=== PATIENT | male | born 1940 | race Caucasian/White ===

== ENCOUNTER 2017-06-02 15:45 | Observation (INO) | payer MEDICARE, OTHER ==
[~2017-06-02] VITALS: Ht 180.3 cm; Wt 75.9 kg
--- NOTE | ~2017-06-02 | HP ---
History And Physical [address] [place]. [address] NAME: YOAV SELLERS JR : 42 STATUS : ADM Krissy PAT#: [id number] AGE: 76 ADM/REG DATE : 06/02/17 MR#: [id number] REPORT SERV DATE: 06/03/17 DICTATED BY: ELEANOR SARABIA V. DATE: 06/02/17 REPORT STATUS : Draft TRANSCRIBED BY: MODChoco DATE: 06/02/17 DATE OF ADMISSION: 06/02/2017 CHIEF COMPLAINT: Mild left flank pain. HISTORY OF PRESENT ILLNESS: Mr. Sellers is a pleasant 76-year-old gentleman, status post donor renal transplant at the [facility] in 1999, who has a history of posttransplant lymphoproliferative disorder that has been followed in the past by Dr. Renteria. Primary treatment for that in addition to the chemotherapy was cessation of his CellCept therapy. He was found to have some left flank discomfort for the past few months on and off. 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 He was called and told to come to the emergency department today. He denies any fevers or chills. States the left flank pain is mild and usually only bothers him when he coughs or takes a really deep breath. He does have a history of retinal vein occlusion and has had phlebotomy for erythrocytosis in the past. No recent episodes of need for phlebotomy, however. PAST MEDICAL HISTORY: 1. Renal transplant with excellent allograft function. 2. Hypertension. 3. Diabetes mellitus. 4. History of retinal vein occlusion. 5. History of erythrocytosis. 6. Hyperlipidemia. 7. History of PCP pneumonia. SOCIAL HISTORY: He is retired. He and his live approximately 4 to 5 months out of the year in the [facility]. No alcohol or tobacco at present. FAMILY HISTORY: Noncontributory. ALLERGIES: INCLUDE IODINATED CONTRAST, SHELLFISH, AND IODINE. MEDICATIONS: Home medications include 1. Tylenol. 2. Artificial Tears. 3. Baby aspirin. 4. Coenzyme Q10. 5. Vitamin B12. 6. Colace. 7. Sliding-scale insulin. 8. Lisinopril. 9. Toujeo insulin. 10.Magnesium oxide. 11.Metformin. 12.Potassium. [facility] [address] [address] NAME: YOAV SELLERS JR : 42 STATUS : ADM rKissy PAT#: [id number] AGE: 76 ADM/REG DATE : 06/02/17 MR#: [id number] REPORT SERV DATE: 06/03/17 DICTATED BY: ELEANOR SARABIA V. DATE: 06/02/17 REPORT STATUS : Draft TRANSCRIBED BY: MODChoco DATE: 06/02/17 13.Phosphorus two tablets daily. 14.Prednisone 10 mg. 15.Crestor 5 mg daily. 16.Senokot daily. 17.Prograf 3 mg in the morning, 2 mg in the evening. 18.Bactrim one tablet p.o. Wednesday, Wednesday, and Wednesday. REVIEW OF SYSTEMS: All review of systems are negative except as described above. PHYSICAL EXAMINATION: VITAL SIGNS: Temperature 96.9, heart rate 89, and blood pressure 135/63. GENERAL: He was a very pleasant elderly gentleman with no increased work of breathing. HEENT: Pupils equal, round, and reactive to light. Sclerae were anicteric. Oropharynx was clear with no lesions. NECK: Trachea midline. No thyromegaly. No supraclavicular nodes. No axillary lymph nodes. CHEST: Clear to auscultation with equal bilateral breath sounds. Regular rate and rhythm. No rub. ABDOMEN: Soft and nondistended. Bowel sounds were physiologic. No focal tenderness was appreciated even with deep palpation of the left upper quadrant. EXTREMITIES: Trace lower extremity edema. No clubbing. No cyanosis. SKIN: Warm and dry. No rash or lesions. Some easy bruisability and scattered bruises were noted. LABORATORY DATA: BUN and creatinine 17 and 0.9, hematocrit 40, and white count 10.8. Coagulation studies were normal. CT scan reviewed showed a band-like infarct in the spleen. 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 The patient is relatively asymptomatic, and it may very well be that the splenic infarct has been present for some time. He does have a history of erythrocytosis that led perhaps to retinal vein occlusion. However, he does not currently have significant erythrocytosis. Does not require emergent or urgent anticoagulation at this time. PLAN: 1. We will ask Hematology and Vascular Surgery to visit. He has seen Dr. Renteria in the past for his PTLD. 2. We will defer to the vascular surgery expertise regarding need for further imaging. His allergy to iodinated contrast will make visualization perhaps somewhat difficult. 3. We will defer to Hematology Oncology regarding the need for hypercoagulable workup. 4. Resume his home medications. All the above was discussed with the patient and the patient's at the patient's bedside; they were agreeable to the plan of care. History And Physical [address] [place]. [address] NAME: YOAV SELLERS JR : 42 STATUS : ADM Krissy PAT#: [id number] AGE: 76 ADM/REG DATE : 06/02/17 MR#: [id number] REPORT SERV DATE: 06/03/17 DICTATED BY: ELEANOR SARABIA V. DATE: 06/02/17 REPORT STATUS : Draft TRANSCRIBED BY: ABELARDO DATE: 06/02/17 HELEN/ABELARDO Eleanor Sarabia M.D. / [id number] CC: Yoni Salas M.D.
--- NOTE | ~2017-06-02 | CN ---
Consultation Report [facility] [address] [place]. [address] NAME: YOAV CHANEY JR : 42 STATUS : DIS Krissy PAT#: [id number] AGE: 76 ADM/REG DATE : 06/02/17 MR#: [id number] REPORT SERV DATE: 06/07/17 DICTATED BY: RASHEL MINOR DATE: 06/07/17 REPORT STATUS : Draft TRANSCRIBED BY: MODChoco DATE: 06/07/17 CONSULTATION DATE OF CONSULTATION: 06/02/2017 CHIEF COMPLAINT: Left flank pain. HISTORY OF PRESENT ILLNESS: This is a 76-year-old, male with a history of donor renal transplant at [facility] in 1999, and he also had a history of post transplant lymphoproliferative disorder that has been followed in the past by Dr. Renteria. The patient reports that he has had left flank pain on and off for the last several months and recently underwent a CT scan, which identified a splenic infarct. He was called and told to come to the ER. Dr. Robert Sarabia is the admitting and attending, who is overseeing his care. From a transplant perspective, the patient reports that he is doing well with stable baseline creatinine with no other complaints. He did report that he undergoes phlebotomy for erythrocytosis every three to four months and has had a recent retinal vein occlusion. In discussing with the patient and his , he does state that over the last several months, he has not had to undergo phlebotomy, as frequently as previous years. REVIEW OF SYSTEMS: An 11-point review of systems was interrogated and is otherwise negative. Other than stated in the HPI. PAST MEDICAL HISTORY: Includes renal transplant, hypertension, diabetes, history of retinal vein occlusion, history of erythrocytosis, hyperlipidemia, history of PCP pneumonia. PAST SURGICAL HISTORY: Includes renal transplant. SOCIAL HISTORY: He denies alcohol, tobacco use, or illicit drug use. He is retired and currently lives with his where they live in the [facility] four to five months out of the year. FAMILY HISTORY: Noncontributory. ALLERGIES: IODINATED CONTRAST, SHELLFISH AND IODINE. MEDICATIONS: Tylenol, Artificial Tears, baby aspirin, Coenzyme Q10, vitamin B12, Colace, sliding-scale insulin, lisinopril, insulin magnesium oxide, metformin, potassium, phosphorus, prednisone, Crestor, Senokot, Prograf ,and Bactrim. PHYSICAL EXAMINATION: GENERAL: The patient is awake, alert, and oriented and appears to be comfortable, well- appearing elderly gentleman. HEENT: Pupils are equal, round, reactive to light. Sclera are anicteric. Oropharynx is Consultation Report [facility] [address] [place]. [address] NAME: YOAV CHANEY JR : 42 STATUS : DIS Krissy PAT#: [id number] AGE: 76 ADM/REG DATE : 06/02/17 MR#: [id number] REPORT SERV DATE: 06/07/17 DICTATED BY: RASHEL MINOR DATE: 06/07/17 REPORT STATUS : Draft TRANSCRIBED BY: ABELARDO DATE: 06/07/17 clear. NECK: Trachea is midline. No thyromegaly. No jugular venous distention. CHEST: Clear to auscultation bilaterally. Regular rate and rhythm. With no identifiable cardiac rubs. ABDOMEN: Soft, nontender, nondistended. No focal tenderness. No rebound. No guarding. EXTREMITIES: Bilateral lower extremities are well perfused with normal pulse exam. No cyanosis or clubbing. SKIN: No rashes or erythema and some small areas of bruising along the forearms. LABS: 1. Baseline creatinine is 0.9. Hematocrit is 40. His white blood cell count 10.8. 2. Imaging CT scan shows a 7.2 x 3.4 x 3.5, infarction of the spleen with heavy calcification along the splenic artery as well as some noted calcification at the celiac trunk and SMA. IMPRESSION: This is a pleasant 76-year-old, white male with a history of donor renal transplant and history post-transplant lymphoproliferative disorder with a new finding of splenic infarct. The patient denies significant debilitating pain at this point. It is for the most part asymptomatic. He does have a history of erythrocytosis. Requiring phlebotomy; however, continued workup for this is nonemergent. Because he does have heavy calcifications within the splenic artery itself and at the superior mesenteric artery orifice and celiac trunk, I will further evaluate with a mesenteric abdominal ultrasound. To rule out any significant stenosis. Dr. Sarabia is arranging a Hematology/Oncology consultation for hypercoagulable workup, which I will follow this up. He is currently on a daily aspirin, which I recommend continuing. EC/MODL Rashel Minor DO / [id number] CC: Yoni Salas M.D.
[~2017-06-02 15:45] MED LIST: ASAB PO; B12250T PO; LANTUS FOR SC; LEVEMIR SC; MAGNESIUM PO; MOMUD PO; NIACIN50T PO; NORV25 PO; NOVOLOG SC; NUIRONCAP PO; P10 PO; PROGRAF1 PO; SEPTRA DS1 TAB PO; TUMSROLL PO; VITAMIN D1000 UNI1 PO; [UNRECOGNIZED DRUG - REMARK] PO
[2017-06-02 16:44] LABS: BASOPHILS 0.2 %; BASOPHILS ABSOLUTE 0.02 10/3/uL (0.0-0.16); EOSINOPHILS 0.5 %; EOSINOPHILS ABSOLUTE 0.05 10/3/uL (0.0-0.53); HEMATOCRIT 40.1 % (40.0-51.0); HEMOGLOBIN 12.8 g/dL (13.6-17.8); IMMATURE GRANULOCYTES 0.4 %; IMMATURE GRANULOCYTES ABSOLUTE 0.04 10/3/uL (0.0-0.11); LYMPHOCYTES 11.4 %; LYMPHOCYTES ABSOLUTE 1.23 10/3/uL (0.67-4.30); MEAN CORPUS HGB CONC 31.9 g/dL (32.0-36.0); MEAN CORPUSCULAR HEMOGLOB 26.1 pg (26.0-34.0); MEAN CORPUSCULAR VOLUME 81.7 fL (80-100); MEAN PLATELET VOLUME 9.5 fL (9.2-13.0); MONOCYTES 4.1 %; MONOCYTES ABSOLUTE 0.44 10/3/uL (0.21-1.20); NEUTROPHILS 83.4 %; NEUTROPHILS ABSOLUTE 8.97 10/3/uL (2.02-8.40); RBC DISTRIBUTION WIDTH 14.7 % (12.0-16.0); RED CELL COUNT 4.91 10/6/uL (4.7-6.1); WHITE BLOOD CELLS 10.8 10/3/uL (4.5-10.5)
[2017-06-02 16:46] LABS: MANUAL DIFF NO %; PLATELET COUNT 326 10/3/uL (150-400)
[2017-06-02 16:48] LABS: ASCORBIC ACID (UR NOT ORDER) NEG (NEG); BILIRUBIN, URINE NEGATIVE (NEG); ER URINALYSIS TAT 0 Hrs 08 Mins; KETONE, URINE NEGATIVE (NEG); LEUKOCYTE ESTERASE(NOT OR NEG (NEG); NITRITE (URINE) NEG (NEG); WBC (NOT ORDERED) (RFLEX) 1 (0-5)
[2017-06-02 16:50] LABS: INTERNATIONAL NORMAL RATI 1.1 UNITS (-); PARTIAL THROMBO TIME 28.8 SEC (22.5-37.2); PROTIME (NOT ORD) 13.7 SEC (12.0-14.5)
[2017-06-02 16:59] LABS: A/G RATIO 0.9 (0.7-1.9); ALBUMIN 3.5 G/DL (3.5-5.0); ALKALINE PHOSPHATASE 74 U/L (45-117); BUN (BLOOD UREA NITROGEN) 17 MG/DL (6-23); CALCIUM, SERUM 8.9 MG/DL (8.5-10.4); CHLORIDE, SERUM 105 MMOL/L (96-112); CO2 (CARBON DIOXIDE) 22 MMOL/L (24-34); CREATININE 1.09 MG/DL (0.70-1.30); GFR AFRICAN AMERICAN 77 ML/MIN (>=60); GFR NON AFRICAN AMERICAN 66 ML/MIN (>=60); GLOBULIN 3.9 G/DL (2.5-4.1); GLUCOSE, SERUM 231 MG/DL (60-99); POTASSIUM, SERUM 4.4 MMOL/L (3.5-5.3); SGOT(AST) 31 U/L (5-40); SGPT(ALT) 38 U/L (5-65); SODIUM, SERUM 136 MMOL/L (135-148); TOTAL BILIRUBIN 0.4 MG/DL (0-1.2); TOTAL PROTEIN 7.4 G/DL (6.0-8.5)
[2017-06-02] MEDS ORDERED: PROGRAF1 PO ×2 (20:15)
[2017-06-02] MEDS ORDERED: FORTAMET500 MG PO (20:16)
[2017-06-02] MEDS ORDERED: TOUJEO SC (20:17)
[2017-06-02] MEDS ORDERED: P10 PO (20:17)
[2017-06-02] MEDS ORDERED: PRIN10 PO (20:17)
[2017-06-02] MEDS ORDERED: NOVOLOG SC (20:17)
[2017-06-02] MEDS ORDERED: BAC PO (20:18)
[2017-06-02] MEDS ORDERED: HALF81 PO (20:18)
[2017-06-02] MEDS ORDERED: CRESTOR5 MG PO (20:18)
[2017-06-02] MEDS ORDERED: PHOS-NAK PO (20:21)
[2017-06-02] MEDS ORDERED: SENTAB PO (20:22)
[2017-06-02] MEDS ORDERED: DSS PO (20:22)
[2017-06-02] MEDS ORDERED: MAGOX4 PO (20:22)
[2017-06-02] MEDS ORDERED: ACET500CAP PO (20:23)
[2017-06-02] MEDS ORDERED: COQ-1010 MG PO (20:23)
[2017-06-02] MEDS ORDERED: CYANO1000T PO (20:23)
[2017-06-02] MEDS ORDERED: TEARS PLUS OPH (20:24)
[2017-06-03 04:19] LABS: BASOPHILS 0.4 %; BASOPHILS ABSOLUTE 0.04 10/3/uL (0.0-0.16); EOSINOPHILS 2.1 %; EOSINOPHILS ABSOLUTE 0.21 10/3/uL (0.0-0.53); HEMATOCRIT 38.1 % (40.0-51.0); IMMATURE GRANULOCYTES 0.2 %; IMMATURE GRANULOCYTES ABSOLUTE 0.02 10/3/uL (0.0-0.11); LYMPHOCYTES 34.4 %; LYMPHOCYTES ABSOLUTE 3.39 10/3/uL (0.67-4.30); MEAN CORPUS HGB CONC 31.5 g/dL (32.0-36.0); MEAN CORPUSCULAR HEMOGLOB 25.6 pg (26.0-34.0); MEAN CORPUSCULAR VOLUME 81.4 fL (80-100); MONOCYTES 12.7 %; MONOCYTES ABSOLUTE 1.25 10/3/uL (0.21-1.20); NEUTROPHILS 50.2 %; NEUTROPHILS ABSOLUTE 4.94 10/3/uL (2.02-8.40); PLATELET COUNT 314 10/3/uL (150-400); RBC DISTRIBUTION WIDTH 14.4 % (12.0-16.0); RED CELL COUNT 4.68 10/6/uL (4.7-6.1); WHITE BLOOD CELLS 9.9 10/3/uL (4.5-10.5)
[2017-06-03 04:22] LABS: MANUAL DIFF NO %
[2017-06-03 04:30] LABS: INTERNATIONAL NORMAL RATI 1.1 UNITS (-); PARTIAL THROMBO TIME 29.5 SEC (22.5-37.2); PROTIME (NOT ORD) 13.9 SEC (12.0-14.5)
[2017-06-03 04:35] LABS: ALBUMIN 3.1 G/DL (3.5-5.0); BUN (BLOOD UREA NITROGEN) 17 MG/DL (6-23); CHLORIDE, SERUM 107 MMOL/L (96-112); CO2 (CARBON DIOXIDE) 23 MMOL/L (24-34); CREATININE 0.95 MG/DL (0.70-1.30); GFR AFRICAN AMERICAN 90 ML/MIN (>=60); GFR NON AFRICAN AMERICAN 78 ML/MIN (>=60); GLUCOSE, SERUM 107 MG/DL (60-99); PHOSPHORUS, SERUM 2.7 MG/DL (2.5-4.5); POTASSIUM, SERUM 3.8 MMOL/L (3.5-5.3); SODIUM, SERUM 137 MMOL/L (135-148)
[2017-06-04 04:46] LABS: BASOPHILS 0.5 %; BASOPHILS ABSOLUTE 0.04 10/3/uL (0.0-0.16); EOSINOPHILS 2.6 %; EOSINOPHILS ABSOLUTE 0.22 10/3/uL (0.0-0.53); HEMATOCRIT 40.1 % (40.0-51.0); HEMOGLOBIN 12.9 g/dL (13.6-17.8); IMMATURE GRANULOCYTES 0.1 %; IMMATURE GRANULOCYTES ABSOLUTE 0.01 10/3/uL (0.0-0.11); LYMPHOCYTES 37.7 %; LYMPHOCYTES ABSOLUTE 3.25 10/3/uL (0.67-4.30); MEAN CORPUS HGB CONC 32.2 g/dL (32.0-36.0); MEAN CORPUSCULAR VOLUME 80.8 fL (80-100); MEAN PLATELET VOLUME 9.2 fL (9.2-13.0); MONOCYTES 11.6 %; NEUTROPHILS 47.5 %; NEUTROPHILS ABSOLUTE 4.09 10/3/uL (2.02-8.40); PLATELET COUNT 321 10/3/uL (150-400); RBC DISTRIBUTION WIDTH 14.5 % (12.0-16.0); RED CELL COUNT 4.96 10/6/uL (4.7-6.1); WHITE BLOOD CELLS 8.6 10/3/uL (4.5-10.5)
[2017-06-04 04:47] LABS: MANUAL DIFF NO %
[2017-06-04 05:01] LABS: T PROTEIN (ELECT)(NOT OR 6.5 G/DL (6.0-8.5)
[2017-06-04 05:04] LABS: A/G RATIO 0.9 (0.7-1.9); ALBUMIN 3.2 G/DL (3.5-5.0); ALKALINE PHOSPHATASE 59 U/L (45-117); BUN (BLOOD UREA NITROGEN) 15 MG/DL (6-23); C-REACTIVE PROTEIN 4.8 MG/L (<8.0); CALCIUM, SERUM 9.3 MG/DL (8.5-10.4); CHLORIDE, SERUM 105 MMOL/L (96-112); CO2 (CARBON DIOXIDE) 24 MMOL/L (24-34); CREATININE 0.83 MG/DL (0.70-1.30); GFR AFRICAN AMERICAN 100 ML/MIN (>=60); GFR NON AFRICAN AMERICAN 86 ML/MIN (>=60); GLOBULIN 3.6 G/DL (2.5-4.1); GLUCOSE, SERUM 89 MG/DL (60-99); POTASSIUM, SERUM 3.9 MMOL/L (3.5-5.3); SGOT(AST) 22 U/L (5-40); SGPT(ALT) 30 U/L (5-65); SODIUM, SERUM 137 MMOL/L (135-148); TOTAL BILIRUBIN 0.5 MG/DL (0-1.2); TOTAL PROTEIN 6.8 G/DL (6.0-8.5)
[2017-06-04 11:22] LABS: A/G 1.42 RATIO (0.9-2.10); ALB RELATIVE % 58.6 % (60.0-89.0); ALBUMIN (ELECTRO) 3.81 GM/DL (3.2-5.5); ALPHA 1 (ELECTRO) 0.22 GM/DL (0.1-0.4); ALPHA 1 RELAT % (NOT ORD) 3.4 % (1.0-4.0); ALPHA 2 (ELECTRO) 0.86 GM/DL (0.5-1.10); ALPHA 2 RELAT % 13.3 % (4.5-26.0); BETA GLOBULIN (SPE) 0.72 GM/DL (0.60-1.30); BETA RELATIVE % 11.1 % (9.0-22.0); GAMMA GLOBULIN (SPE) 0.88 G/DL (0.70-1.60); GAMMA RELAT % 13.6 % (6.0-22.0)
[2017-06-07 13:36] LABS: DRVVT 40.3 sec (31.8-45.7); DRVVT CONFIRM RATIO CHG ND; DRVVT MIX RATIO CHG ND
== END 2017-06-04 17:14 | disposition home or self-care (01) ==
LOC: ENRESERV → ENRESERVDT → CANRESERV → ENRESERVTM → ER 15:45 → 2SO 19:58 → CDU1 19:58 → 2SO 06-03 20:02
PROVIDERS: Emergency Medicine; Internal Medicine Hematology & Oncology; Internal Medicine Nephrology
DX: D73.5 Infarction of spleen (principal); I10 Essential (primary) hypertension; E11.9 Type 2 diabetes mellitus without complications; E78.5 Hyperlipidemia, unspecified; Z91.013 Allergy to seafood; Z94.0 Kidney transplant status; Z91.041 Radiographic dye allergy status; Z79.899 Other long term (current) drug therapy
CPT/HCPCS: 80053; 80069; 81001; 82962; 83615; 83690; 83735; 84155; 84165; 85025; 85610; 85613; 85670; 85730; 86140; 86334; 93306; 93975; 99284; A9270-GY; G0378; J7507